=== PATIENT | female | born 1960 | race Two or more races ===

== ENCOUNTER 2024-09-10 09:42 | Day surgery (SDC) | payer SELFPAY ==
[2024-09-07 12:02] LABS: Urine Bacteria None Seen /hpf (None Seen)
[2024-09-07 12:08] LABS: Basophils # (auto) 0.1 10 ^3/uL (0-0.2); Eosinophils # (auto) 0.2 10 ^3/uL (0-0.8); Eosinophils % (auto) 2.6 % (0.0-7.0); Hematocrit 39.3 % (36.0-46.0); Hemoglobin 13.4 g/dL (12.2-16.2); Lymphocytes # (auto) 1.6 10 ^3/uL (0.4-5.4); Lymphocytes % (auto) 20.1 % (10.0-50.0); Mean Corpuscular Hemoglobin 29.8 pg (28.0-32.0); Mean Corpuscular Hgb Conc. 34.1 g/dL (32.0-36.0); Mean Corpuscular Volume 87.4 fL (80.0-100.0); Monocytes # (auto) 0.5 10 ^3/uL (0-1.3); Monocytes % (auto) 6.9 % (0.0-12.0); Neutrophils # (auto) 5.4 10 ^3/uL (1.6-8.6); Neutrophils % (auto) 69.4 % (37.0-80.0); Nucleated Red Blood Cells % 0.1 %; Platelet Count (auto) 385 10^3/uL (140-450); Red Blood Cells 4.49 10^6/uL (4.0-5.20); Red Cell Distribution Width 13.6 % (11.8-14.3); White Blood Cell 7.8 10^3/uL (4.4-10.8)
[2024-09-07 12:10] LABS: Urine Blood Negative /uL (Negative); Urine Clarity Clear (Clear); Urine Color Light-Yellow (Yellow); Urine Protein, UAD Negative (Negative); Urine Specific Gravity 1.015 (1.001-1.035); Urine Squamous Epithelial Cell FEW /hpf (<5); Urine Urobilinogen Normal (Negative); Urine WBC 2 /HPF (0-5); Urine pH 6.5 (5.0-9.0)
[2024-09-07 12:32] LABS: Alanine Aminotransferase 14 U/L (7-40); Albumin 4.8 g/dL (3.2-4.8); Alkaline Phosphatase 155 U/L (46-116); Anion Gap 8 (5-15); Aspartate Aminotransferase 9 U/L (13-40); BUN/Creatinine Ratio 19.1 (10.0-20.0); Blood Urea Nitrogen 17 mg/dL (9-23); Calcium 10.2 mg/dL (8.7-10.4); Carbon Dioxide 29 mmol/L (20-31); Chloride 104 mmol/L (98-107); Glucose 135 mg/dL (74-106); Potassium 3.9 mmol/L (3.5-5.1); Sodium 141 mmol/L (136-145); Total Protein 7.6 g/dL (5.7-8.2)
[2024-09-07 12:33] LABS: Bilirubin, Total 0.6 mg/dL (0.2-1.0)
[2024-09-07 12:41] LABS: INR 1.03 (0.9-1.15); Partial Thromboplastin Time 27.3 SEC (24.5-34.5); Prothrombin Time 10.9 sec (9.3-11.8)
[~2024-09-10] VITALS: Ht 170.2 cm; Wt 88.9 kg
[~2024-09-10 09:42] MED LIST: ALBUAER3 IN; ATE50T PO; BACL10TA PO; HYDR25TA5 PO; LEVO25TA6 PO; PANT40TA2 PO; TRIA0.1O TOP
[2024-09-10] MEDS ORDERED: fentaNYL CITRATE 100 MCG/2 ML VL ONE (09:53)
[2024-09-10] MEDS ORDERED: PROPOFOL 10 MG/ML 20 ML IV ONE (09:53)
[2024-09-10] MEDS ORDERED: ceFAZolin 2 GM/D5W50ml 50 ML IV ONE (10:08)
[2024-09-10] MEDS ORDERED: ROPIVACAINE 0.5% (5MG/ML) 20ML AMPULE IJ ONE (10:09)
[2024-09-10 10:10] VITALS: PULSE 76; RESP 14; O2SAT 96
[2024-09-10] MEDS ORDERED: ePHEDrine SULFATE 50 MG/ML AMP ONE (10:25)
[2024-09-10] MEDS ORDERED: GLYCOPYRROLATE 0.2 MG/ML 1ML VIAL ONE (10:27)
[2024-09-10] MEDS ORDERED: DexAMETHasone SOD PHOS 10MG/1ML VIAL INJ ONE (10:31)
[2024-09-10] MEDS ORDERED: ONDANSETRON HCL 4 MG/2 ML VIAL ONE ×2 (10:31→11:47)
[2024-09-10] MEDS: BUPIVACAINE 0.25% INJ 50ML VIAL ONE (10:46)
--- NOTE | 2024-09-10 11:02 | DVHOP2 ---
Operative Report - 2 Report Details Date: 09/10/24 Preop Diagnosis: Left distal fibula fracture Postop Diagnosis: Left distal fibula fracture Surgeon: Amadou Pinedo MD Associate Genetics Professor: Niall HAN Anesthesiologist: Madalyn WAY Anesthesia: General Implant: Arthrex fibula nail Consent: The patient was informed of the risks and benefits of the procedure. These include but are not limited to complications of anesthesia, postoperative infection, incomplete relief of symptoms, recurrence of symptoms, damage to blood vessels, nerves and tendons, deep venous thrombosis, pulmonary embolism and possible need for repeat surgery in the future. Estimated Blood Loss: 2 cc Name of Procedure Performed Open reduction internal fixation of left distal fibula fracture; intraop fluoro Procedure Details Procedure Details: HISTORY OF PRESENT ILLNESS: Risks/benefits/options and alternatives were discussed in length. Risks associated with anesthesia, infection, damage to nerves and blood vessels, and bleeding or blood clots. Problems after ankle fracture surgery include ankle joint stiffness, weakness, need for further surgery and arthritis. Possible complications after ankle fracture surgery include infection and problems with healing. PROCEDURE: After all potential complications and risks as well as risks and benefits of the above-mentioned procedure was discussed at length with the patient and family, informed consent was obtained. The lower extremity was then confirmed with the operating surgeon, the patient, the nursing staff and Department of Anesthesia. The patient was then transferred to preoperative area in the Operative Suite and placed on the operating room table in supine position. At this time, the anesthesia was performed. All bony prominences were well padded at this time. A nonsterile tourniquet was placed on the left upper thigh of the patient. This was then removed and the right lower extremity was sterilely prepped and draped in the usual sterile fashion. The left lower extremity was then elevated and exsanguinated using Esmarch and tourniquet was then placed to 250 mmHg. Next, after all bony and soft tissue landmarks were identified, a 5 cm longitudinal incision was made directly over the lateral mal fracture on the Le ft ankle. A sharp dissection was carefully taken down to the level of bone taking care to protect the neurovascular structures. Once the bone was reached, the fractured site was identified. The bony ends were then opened and divided of all hematoma as well as excess periosteum within the fracture site. For the lateral side he had a posterior comminution with a distal diagonal fracture. With manual traction and manipulation with bone reduction clamps we were able to reduce patient fracture. Intraoperative fluoroscopy confirmed reduction. A Fibula nail was then selected for instrumentation with nonlocking/locking through the nail Next Fluorsocpy was used to visualize the hardware placement as well as the fracture reduction appeared to be in good position, all hardware was in good position. They were in good overall position and there was no lateralization of the joint. At this time, each wound was copiously irrigated and suctioned dry. The wounds were then closed using #2-0 Vicryl suture in subcutaneous fashion followed by 3-0 nylon on the skin. A sterile dressing was applied consistent with Adaptic, 4x4s, Kerlix, and Webril. An ankle splint was then placed on the right lower extremity. The patient was transferred back to the [facility] and to the Postanesthetic Care Unit. The patient tolerated the procedure well. There were no complications. Condition Good Disposition Home AMADOU PINEDO MD September 10, 2024 11:02
[2024-09-10 11:06] VITALS: PULSE 76; RESP 14; TEMP 96.8; O2SAT 96
[2024-09-10] MEDS ORDERED: ACETAMINOPHEN IV 100 ML IV ONE (11:35)
[2024-09-10] MEDS: ACETAMINOPHEN IV 1000 MG/100ML (10MG/ML) IV PRN (11:45)
[2024-09-10] MEDS: ONDANSETRON HCL 4 MG/2 ML VIAL IV ONE (11:50)
--- NOTE | 2024-09-10 12:07 | DVH ---
FLUOROSCOPY TIME: 18.7 seconds TECHNIQUE: Intraoperative radiographs of the left ankle were obtained. COMPARISON: None FINDINGS: Refer to intraoperative report for further evaluation. IMPRESSION: Refer to intraoperative report for further evaluation.
[2024-09-10] MEDS ORDERED: HYDROmorphone HCL 2 MG/ML VL/or syr ONE (12:10)
[2024-09-10] MEDS: HYDROmorphone HCL 2 MG/ML VL/or syr IV PRN (12:10)
[2024-09-10 13:20] VITALS: BP 115/67; PULSE 68; RESP 20; O2SAT 99
== END 2024-09-10 13:20 | disposition home or self-care (01) ==
LOC: SUR 09:42
PROVIDERS: ATTEND Orthopaedic Surgery Adult Reconstructive Orthopaedic Surgery
DX: S82.832A Other fracture of upper and lower end of left fibula, initial encounter for closed fracture (principal); J45.909 Unspecified asthma, uncomplicated; E03.9 Hypothyroidism, unspecified; E66.9 Obesity, unspecified; Z68.31 Body mass index [BMI] 31.0-31.9, adult; Z79.899 Other long term (current) drug therapy; Z98.51 Tubal ligation status; Z90.49 Acquired absence of other specified parts of digestive tract; Z88.1 Allergy status to other antibiotic agents; Z88.8 Allergy status to other drugs, medicaments and biological substances; X58.XXXA Exposure to other specified factors, initial encounter; Y93.89 Activity, other specified; Y92.89 Other specified places as the place of occurrence of the external cause; Y99.8 Other external cause status
CPT/HCPCS: 27792; 36415; 73600; 80053; 81001; 85025; 85610; 85730; C1713; J0690; J1100; J1171; J2405; J2704; J2795; J3010; 76000; J0131; J3490